=== PATIENT | female | born 1965 | race Caucasian/White ===

== ENCOUNTER → 2017-10-07 | Outpatient (CLI) | payer OTHER ==
[~2017-10-07] VITALS: Ht 172.7 cm; Wt 78.0 kg
[~2017-10-07] MED LIST: FIORICET 50-301 EAC1 PO; TOPAMAX25 MG PO
[2017-10-07 14:16] LABS: HEMATOCRIT 38.3 % (36.0-46.0); MCV 86.1 FL (83-99)
== END | disposition home or self-care (01) ==
LOC: AMB 09-30 09:30
PROVIDERS: Internal Medicine
PROC: 0DBK8ZX Excision of Ascending Colon, Via Natural or Artificial Opening Endoscopic, Diagnostic (ICD-10-PCS; principal; 2017-10-07)
DX: Z12.11 Encounter for screening for malignant neoplasm of colon (principal); K64.8 Other hemorrhoids; D12.2 Benign neoplasm of ascending colon; H91.90 Unspecified hearing loss, unspecified ear; Z79.82 Long term (current) use of aspirin
CPT/HCPCS: 85014; 85018; 88305; J2250